=== PATIENT | male | born 1985 | race Asian ===

== ENCOUNTER 2017-02-10 07:39 | Emergency (ER) | payer OTHER ==
[~2017-02-10] VITALS: Ht 175.3 cm; Wt 93.2 kg
[2017-02-10 08:51] VITALS: BP 139/91
[2017-02-10] MEDS ORDERED: NEOMYCIN/POLYMYXIN B/GRAMICIDIN 10 ML OPHTHALMIC SOLUTION OS ONE (09:00)
== END 2017-02-10 09:14 | disposition home or self-care (01) ==
LOC: EMS 07:41
DX: S09.90XA Unspecified injury of head, initial encounter (principal); S00.12XA Contusion of left eyelid and periocular area, initial encounter; S00.212A Abrasion of left eyelid and periocular area, initial encounter; X58.XXXA Exposure to other specified factors, initial encounter; Y93.89 Activity, other specified; Y92.89 Other specified places as the place of occurrence of the external cause; Y99.8 Other external cause status
CPT/HCPCS: 99282

== ENCOUNTER 2018-12-22 08:26 | Emergency (ER) | payer OTHER ==
[~2018-12-22] VITALS: Ht 175.3 cm; Wt 100.0 kg
[2018-12-22 09:55] VITALS: BP 135/85
== END 2018-12-22 10:05 | disposition home or self-care (01) ==
LOC: EMS 08:27
DX: S90.212A Contusion of left great toe with damage to nail, initial encounter (principal); Y04.0XXA Assault by unarmed brawl or fight, initial encounter; Y93.89 Activity, other specified; Y92.89 Other specified places as the place of occurrence of the external cause; Y99.8 Other external cause status